=== PATIENT | male | born 1950 | race Caucasian/White ===

== ENCOUNTER 2018-05-21 09:49 | Day surgery (SDC) | END 2018-05-21 14:52 | disposition home or self-care (01) ==

== ENCOUNTER 2019-02-25 08:19 | Day surgery (SDC) | payer OTHER ==
[2019-02-25] VITALS (9 sets, daily range): BP systolic 96–128; BP diastolic 62–80; PULSE 64–85; RESP 9–18; Ht 172.7 cm; Wt 66.0 kg
[~2019-02-25] VITALS: Ht 172.7 cm; Wt 66.0 kg
[~2019-02-25 08:19] MED LIST: ASPI-831 PO; ASPI81TA52 PO; ATOR10TA65 PO; CIPROFLOXACIN 0.3% 2.5 ML OPH (PRE-OP) OPER SCH; CYCLOPENTOLATE 1% 2 ML OPH (PRE-OP) OPER SCH; DICLOFENAC 0.1% 2.5 ML OPH (PRE-OP) OPER SCH; HYDR-3498 PO; PANT40VI7 PO; PHENYLephrine 2.5% 15 ML OPH (PRE-OP) OPER SCH; TETRACAINE 0.5% 4 ML OPH (PRE-OP) OPER SCH; TROPICAMIDE 1% 15 ML OPH (PRE OP) OPER SCH
[2019-02-25] MEDS ORDERED: LACTATED RINGER'S 1,000 ML IV SCH (09:30)
[2019-02-25] MEDS ORDERED: OXYCODONE/ACETAMINOPHEN (5/325) TAB PO PRN ×2 (10:30)
[2019-02-25] MEDS ORDERED: ACETAMINOPHEN 500 MG TAB PO PRN (10:30)
[2019-02-25] MEDS ORDERED: ONDANSETRON 4 MG INJ IV PRN (10:30)
[2019-02-25] MEDS ORDERED: ONDANSETRON 4 MG INJ ONE (10:41)
[2019-02-25] MEDS ORDERED: FENTAnyl 50 MCG/ML VIAL ONE (10:41)
[2019-02-25] MEDS ORDERED: LIDOCAINE 1.5%/EPI MPF (SDV) 30 ML VIAL INJ ONE (10:44)
[2019-02-25] MEDS ORDERED: NA HYALURONATE/CHONDROITIN 0.5 ML SYG ONE (11:18)
[2019-02-25] MEDS ORDERED: LIDOCAINE 1%/EPI 30 ML INJ ONE (11:18)
== END 2019-02-25 12:31 | disposition home or self-care (01) ==
LOC: SDS 08:19
PROVIDERS: ATTEND Ophthalmology
DX: H26.9 Unspecified cataract (principal)
CPT/HCPCS: 66984; J2405; J3010; Z7610; V2632